=== PATIENT | female | born 1970 | race Caucasian/White ===

== ENCOUNTER 2017-05-22 06:18 | Inpatient (IN) | payer BC, SELFPAY ==
[2017-05-22] VITALS (14 sets, daily range): BP systolic 91–136; BP diastolic 38–82
[~2017-05-22] VITALS: Ht 172.7 cm; Wt 99.8 kg
[2017-05-22] MEDS ORDERED: Ropivacaine 5mg/ml Vial 20ml INJ ONE (07:12)
[2017-05-22] MEDS ORDERED: Vancomycin 1gm inj IVPB ONE (07:12)
[2017-05-22] MEDS ORDERED: SPIRONOLACTONE100 MG ORAL (07:14)
[2017-05-22] MEDS ORDERED: VITAMIN B125000 MCG PO (07:14)
[2017-05-22] MEDS ORDERED: VITAMIN D1000 UNI1 ORAL (07:14)
[2017-05-22] MEDS ORDERED: FERROUS SULFAT325 M2 ORAL (07:14)
[2017-05-22] MEDS ORDERED: MULTIVITAMINS1 EAC2 ORAL (07:14)
[2017-05-22] MEDS ORDERED: OMEPRAZOLE20 M2 ORAL (07:14)
[2017-05-22] MEDS ORDERED: [UNRECOGNIZED DRUG - OTHER] PO (07:14)
[2017-05-22] MEDS ORDERED: AMITRIPTYLINE25 MG ORAL (07:14)
[2017-05-22] MEDS ORDERED: ProvayBlue 5mg/ml 10ml amp INJ ONE (07:30)
[2017-05-22] MEDS ORDERED: ePHEDrine 50mg/ml Inj ONE (08:00)
[2017-05-22] MEDS ORDERED: Zemuron 50mg/5ml Inj IV ONE (08:00)
[2017-05-22] MEDS ORDERED: Midazolam 2mg/2ml Inj ONE (08:00)
[2017-05-22] MEDS ORDERED: Atropine Sulfate 0.4mg/ml inj ONE (08:00)
[2017-05-22] MEDS ORDERED: Sterile Water Irrig 1000ml IRRIG ONE (08:00)
[2017-05-22] MEDS ORDERED: Lidocaine 1% MPF 10mg/ml 5ml ONE (08:00)
[2017-05-22] MEDS ORDERED: Neostigmine 1mg/ml 10ml Inj ONE (08:00)
[2017-05-22] MEDS ORDERED: NS Irrig 1000ml ONE (08:00)
[2017-05-22] MEDS ORDERED: fentaNYL 100 mcg/2 mL IV ONE (08:00)
[2017-05-22] MEDS ORDERED: Glycopyrrolate 0.2mg/ml 1ml Vial ONE (08:00)
[2017-05-22] MEDS ORDERED: Propofol 200mg/20ml IV ONE (08:00)
[2017-05-22] MEDS ORDERED: Ketorolac 30mg Inj ONE (08:00)
[2017-05-22] MEDS ORDERED: Sodium Chloride 10ml vial INJ ONE (08:00)
[2017-05-22] MEDS ORDERED: Succinylcholine 20mg/ml 10ml vial ONE (08:00)
[2017-05-22] MEDS ORDERED: LR 1000ml ONE (08:00)
--- NOTE | 2017-05-22 08:03 | Anethesia Preoperative Eval ---
Anesthesia Pre-op PMH/ROS General Date of Evaluation: May 22, 2017 Time of Evaluation: 07:57 Anesthesiologist: Forrest ASA Score: ASA 3 Mallampati Score Class I : Soft palate, uvula, fauces, pillars visible Class II: Soft palate, uvula, fauces visible Class III: Soft palate, base of uvula visible Class IV: Only hard plate visible Mallampati Classification: Class II Surgeon: Sydni Diagnosis: Symptomatic uterine fibroids Surgical Procedure: Vaginal laparoscopic assysted hysterectomy Anesthesia History: none Family History: no anesthesia problems Allergies: Coded Allergies: CEPHALEXIN (Verified Allergy, Unknown, 05/20/17) MORPHINE (Verified Allergy, Unknown, 05/20/17) PENICILLINS (Verified Allergy, Unknown, 05/20/17) Medications: see eMAR Past Medical History Cardiovascular: Denies: HTN, CAD, [place], valve dz, arrhythmia, other Pulmonary: Denies: asthma, COPD, ANEL, other Gastrointestinal/Genitourinary: Reports: GERD, other - s/p gastric bypass, Denies: CRI, ESRD Neurologic/Psychiatric: Reports: depression/anxiety, Denies: dementia, CVA, TIA, other Endocrine: Denies: DM, hypothyroidism, steroids, other HEENT: Denies: cataract (L), cataract (R), glaucoma, [place] (L), [place] (R), other Hematology/Immune: Denies: anemia, DVT, bleeding disorder, other Musculoskeletal/Integumentary: Reports: other - joints weakness , Denies: OA, RA, DJD, DDD, edema Other: obesity PMH Narrative: as above PSxH Narrative: Multiple ortho GB, cholecystectomy, shoulder Anesthesia Pre-op Phys. Exam Physician Exam Last Vital Signs Date Time Temp Pulse Resp B/P (MAP) Pulse Ox O2 Delivery O2 Flow Rate FiO2 05/22/17 07:20 97.7 66 20 130/82 99 Room Air Constitutional: NAD Neurologic: CN 2-12 intact Cardiovascular: RRR Respiratory: CTA Gastrointestinal: other - obesity Airway Exam Mallampati Score: Class II MO: full Neck: flexible TMD: possible sublaxetion ROM: full Teeth: intact Dentures: no upper, no lower Anesthesia Pre-op A/P Labs see chart Urine Test Test 05/22/17 06:30 Urine HCG, Qualitative Negative Studies Pre-op Studies: EKG - NSR Risk Assessment & Plan Assessment: ASA 3 Plan: GA with ETT Status Change Before Surgery: No Pre-Antibiotics Drug: Vanco 1gr. Given Within 1 Hr of Incision: Yes Time Given: 08:30 CACHORRO LEAL M.D. May 22, 2017 08:03
--- NOTE | 2017-05-22 08:16 | Pre-Procedure Note/Attestation ---
Pre-Procedure Note/Attestation Complete Prior to Procedure Planned Procedure: not applicable Procedure Narrative: LAVH, BSO, possible EMILY Indications for Procedure Pre-Operative Diagnosis: Chronic Uterine bleeding Attestation I attest that I discussed the nature of the procedure; its benefits; risks and complications; and alternatives (and the risks and benefits of such alternatives ), prior to the procedure, with the patient (or the patient's legal patient care representative). I attest that, if there was a reasonable possibility of needing a blood transfusion, the patient (or the patient's legal patient care representative) was given the [facility] standardized written summary, pursuant to the [place] Blood Safety Act ([place] Health and Safety Code # 1645, as amended). I attest that I re-evaluated the patient just prior to the surgery and that there has been no change in the patient's H&P, except as documented below:NONE MARIPOSA ARROYO May 22, 2017 08:16
[2017-05-22] MEDS ORDERED: LR 1000ml 1,000 ML IVLG SCH (09:13)
[2017-05-22] MEDS ORDERED: Metoclopramide 10mg/2ml Inj IVP PRN (09:15)
[2017-05-22] MEDS ORDERED: Midazolam 2mg/2ml Inj IVP PRN (09:15)
[2017-05-22] MEDS ORDERED: Ketorolac 30mg Inj IV PRN (09:15)
[2017-05-22] MEDS ORDERED: Meperidine 25mg/0.5ml Inj (FOR RIGORS ONLY) IV PRN (09:15)
[2017-05-22] MEDS ORDERED: DiphenhydrAMINE 50mg/ml Inj IVP PRN (09:15)
[2017-05-22] MEDS ORDERED: Hydromorphone 0.5mg/0.5ml inj IVP PRN (09:15)
--- NOTE | 2017-05-22 11:20 | Brief Operative Note ---
Immediate Post Operative Note Operative Note Pre-op Diagnosis: Chronic Uterine bleeding Procedure: LAVH, BSO Post-op Diagnosis: same as pre-op Surgeon: Ira Puente MD Combat Systems Officer: Mariposa Arroyo MD Anesthesiologist: Girish Clayton MD Anesthesia: general Specimen: yes - Uterus, Cervix, Both tubes & ovaries Complications: none Condition: stable Fluids: LR @125 cc / hr Estimated Blood Loss: volume - 150 cc Drains: none Implant(s) used?: No MARIPOSA ARROYO May 22, 2017 11:20
--- NOTE | 2017-05-22 11:30 | Immediate Post-Op Evaluation ---
Immediate Post-Op Evalulation Immediate Post-Op Evalulation Procedure: Vaginal lapassisted hysterectomy with BSO Date of Evaluation: May 22, 2017 Time of Evaluation: 11:29 IV Fluids: 1800 Blood Products: none Estimated Blood Loss: 100 Urinary Output: 600 Blood Pressure Systolic: 94 Blood Pressure Diastolic: 56 Pulse Rate: 67 Respiratory Rate: 20 O2 Sat by Pulse Oximetry: 99 Temperature (Fahrenheit): 97.8 Pain Score (1-10): 2 Nausea: No Vomiting: No Complications none Patient Status: reacts, patent, extubated, none Hydration Status: adequate CACHORRO LEAL M.D. May 22, 2017 11:30
--- NOTE | 2017-05-22 11:37 | Operative Note - PDOC ---
Operative Note Operative Note Date of Operation/Procedure: May 22, 2017 Chief Complaint: Abnormal uterine bleeding Pre-op Diagnosis: Abnormal uterine bleeding that did not respond to medical interventions Procedure: Laparoscopic-Assisted Vaginal Hysterectomy, Bilateral Salpingo-oophorectomy Post-op Diagnosis: Abnormal uterine bleeding Post-op Diagnosis: same as pre-op Surgeon: Ira Puente MD Communications Professional: Joel Troy MD Anesthesiologist: Girish Clayton MD Anesthesia: general Specimen: yes - Uterus, Cervix, Both tubes & ovaries Complications: none Condition: stable Fluids: LR @125 cc / hr Estimated Blood Loss: volume - 150 cc Drains: none Packing: None Implant(s) used?: No Indications for Procedure Patient is a 46y/o who presented with chronic heavy vaginal bleeding that did not respond to medical interventions. The patient was counseled on the risks, benefits, and alternatives to therapy including medical vs. surgical intervention, and given that medical interventions had not been successful, the patient desired definitive surgical management. Description of Procedure The patient was taken to the operating room where anesthesia was obtained without difficulty. Preoperative antibiotics were given. The patient was positioned in dorsal lithotomy in Suraj stirrups and a Juan hugger was placed to maintain control of core temperature. The patient was then prepped and draped in the usual sterile fashion. Bimanual exam revealed a uterus approximately 8cm size, midline, and mobile. No adnexal masses were noted. A quezada catheter was inserted into the bladder. A bivalve speculum was inserted into the vagina and the anterior lip of the cervix was grasped with a single-toothed tenaculum. A uterine manipulator was introduced through the cervix after serial dilation was performed with Meño dilators. The manipulator was stabilized, the tenaculum and speculum were removed, and attention was then turned to the abdomen. A vertical incision was made intra-umbilically after instillation of local anesthetic, and the Veress needle was inserted into the abdomen to obtain pneumoperitoneum. The opening pressure was 7mmHg. Pneumoperitoneum was established with carbon dioxide gas. The Veress needle was removed, and an 11mm trochar was inserted through the umbilical incision. The 10mm operative scope was introduced and the abdomen was inspected. No harm due to the procedure done was noted. The patient was noted to have intra-abdominal adhesions above the level of the umbilicus. No other abnormalities were noted. Normal liver edge. Two additional incisions were made after instillation of local anesthetic, one in each of the lower quadrants, 2cm superior and medial to the anterior superior iliac spine. Ports were introduced under direct visualization. Atraumatic graspers were introduced and the pelvis was inspected. A normal appearing uterus was appreciated. Normal ovaries and fallopian tubes were visualized bilaterally. The right round ligament was grasped, elevated, and transected using bipolar cautery. The right fallopian tube was grasped, elevated, and transected using bipolar cautery. The anterior leaf of the broad ligament was dissected medially to create a bladder flap. The bladder was pushed down. The uterine artery was skeletonized, coagulated, and cut using bipolar cautery. The right infundibulopelvic ligament was identified. The ureter was identified along the pelvic sidewall and peristalsis was appreciated. The ovary and tube were then grasped, elevated, and the infundibulopelvic ligament was transected using bipolar cautery. The right ovary and tube were then placed in the posterior cul- de-sac. Excellent hemostasis was noted. Attention was then turned to the left. The left round ligament was grasped, elevated, and transected using bipolar cautery. The anterior leaf of the broad ligament was dissected medially to create the remainder of the bladder flap. The bladder was pushed down off the pubocervical fascia. The uterine artery was skeletonized on the left, coagulated , and cut using bipolar cautery. The left infundibulopelvic ligament was identified. The ureter was identified along the pelvic sidewall and peristalsis was appreciated. The ovary and tube were grasped, elevated, and the infundibulopelvic ligament was transected using bipolar cautery. Excellent hemostasis was noted. The pubocervical fascia at the cervicovaginal junction was the incised with monopolar cautery, and a Guille retractor was inserted in the peritoneal cavity from below under direct visualization. Attention was then turned to the pelvis. A weighted speculum was inserted into the vagina. The cervix was grasped using a Bee tenaculum. The uterine manipulator was removed. The cervix was incised anteriorly in a circumferential fashion with bovie cautery. This allowed the fundus to the exteriorized exposing the cardinal ligaments. The uterosacral ligaments were palpated. The cardinal ligaments along with the lateral edges of the posterior cuff and uterosacrals were serially clamped, cut , and tied with 0-Vicryl figure of eight sutures. Once freed laterally, the uterine corpus was removed after cutting the remainder of the posterior cuff. Hemostasis was achieved with a figure of eight suture of 0-Vicryl at the posterior edge of the cuff. The right ovary and tube were retrieved from the posterior cul-de-sac and removed through the vaginal opening. The vaginal cuff was reapproximated horizontally using a running interlocked suture of 0-Vicryl. Excellent hemostasis was noted. Attention was then turned back to the abdomen. Pneumoperitoneum was re-established and the laparoscope and instruments were re- introduced. All pedicles were inspected and excellent hemostasis was noted. The bilateral ureters were re-evaluated and peristalsis was noted bilaterally. All instruments were removed and the carbon dioxide gas was allowed to escape.The fascia at the umbilical port site was reapproximated using 0-Vicryl suture. The skin was closed with Mastisol and steri-strips. The patient was extubated and taken to the recovery room in good condition. All sponge, instrument, and needle counts were correct x 2. Dr. Troy was present for the entire duration of the procedure. Ira Puente M.D. May 22, 2017 11:37
[2017-05-22] MEDS: Ketorolac 30mg Inj IV SCH ×2 (15:46→21:30)
[2017-05-22] MEDS: D5 1/2NS 1,000 ML IV SCH (17:21)
[2017-05-23] VITALS: BP 130/69
[2017-05-23] MEDS: Ketorolac 30mg Inj IV SCH ×2 (00:04→03:30)
[2017-05-23] MEDS: D5 1/2NS 1,000 ML IV SCH (00:08)
[2017-05-23 04:00] VITALS: BP 134/81
--- NOTE | 2017-05-23 07:44 | 48 Hour Post Anesthesia Eval ---
Post Anesthesia Evaluation Procedure: Vaginal lapassisted hysterectomy with BSO Date of Evaluation: May 23, 2017 Airway: patent Nausea: No Vomiting: No Pain Intensity: 2 Hydration Status: adequate Cardiopulmonary Status: at baseline Mental Status/LOC: patient returned to baseline Post-Anesthesia Complications: 0 Follow-up care needed: N/A - further care as per primary team JOSS ELY M.D. May 23, 2017 07:44
[2017-05-23 08:00] VITALS: BP 139/75
--- NOTE | 2017-05-23 09:32 | Discharge Summary ---
Discharge Summary Hospital Course Date of Admission May 22, 2017 at 15:05 Date of Discharge 05/23/2017 Admitting Diagnosis Chronic Uterine bleeding, chronic pelvic pain HPI Maye Mahmood is a 46 year old female who was admitted on May 22, 2017 at 15: 05 for Pelvic Pain Consultations NONE Procedures LAVH, BSO Hospital Course Uncomplicated Discharge Condition Upon Discharge: stable Discharge Disposition Patient was discharged to HOME Discharge Diagnoses: Discharge Instructions Discharge Instructions Diet: regular Activity: ambulate For Surgical Patients Clean and Dry: surgical site Contact your physician for: bleeding, pain, swelling MARIPOSA ARROYO May 23, 2017 09:32
[2017-05-23] MEDS ORDERED: D5 1/2NS 1000ml IV ONE (10:14)
== END 2017-05-23 10:15 | disposition home or self-care (01) | DRG 742 ==
LOC: SDS 06:18 → EDSTATUS 07:30 → 3E 15:05
PROC: 0UT9FZZ Resection of Uterus, Via Natural or Artificial Opening With Percutaneous Endoscopic Assistance (ICD-10-PCS; principal; 2017-05-22 07:30)
PROC: 0UT7FZZ Resection of Bilateral Fallopian Tubes, Via Natural or Artificial Opening With Percutaneous Endoscopic Assistance (ICD-10-PCS; principal; 2017-05-22 07:30)
PROC: 0UT2FZZ Resection of Bilateral Ovaries, Via Natural or Artificial Opening With Percutaneous Endoscopic Assistance (ICD-10-PCS; principal; 2017-05-22 07:30)
DX: N93.9 Abnormal uterine and vaginal bleeding, unspecified (principal); Q79.6 Ehlers-Danlos syndromes; G89.29 Other chronic pain; R10.2 Pelvic and perineal pain; Z88.6 Allergy status to analgesic agent; Z88.1 Allergy status to other antibiotic agents; Z88.0 Allergy status to penicillin; Z88.8 Allergy status to other drugs, medicaments and biological substances; K21.9 Gastro-esophageal reflux disease without esophagitis; Z98.84 Bariatric surgery status
CPT/HCPCS: 81025; 87081; 94003; 94150; J2180; J2250; J2405; J2710